=== PATIENT | female | born 1985 | race Caucasian/White ===

== ENCOUNTER 2017-12-28 21:49 | Emergency (ER) | payer OTHER ==
[~2017-12-28] VITALS: Ht 172.7 cm; Wt 86.2 kg
[~2017-12-28 21:49] MED LIST: AMOXICILLIN500 MG PO; ATARAX25 MG PO; BACTRIM DS 8001 TA1 PO; CIPROFLOXACIN500 MG PO; DOXYCYCLINE100 M3 PO; KEFLEX500 MG PO; LEVAQUIN750 M1 PO; MOTRIN800 MG PO; NEXPLANON68 M2 SQ; NKHM; OSCAL/D,OYSTER250 MG PO; PREDNICOT20 MG PO; PREDNISONE10 MG PO; TRAMADOL HCL50 MG PO; VICODIN 5/500 505 MG PO; XANAX0.5 MG PO
[2017-12-28 22:35] LABS: HEMATOCRIT 40.1 % (37.0-47.0); HEMOGLOBIN 13.6 g/dl (12.0-16.0); MEAN CELL VOLUME 86.2 fl (81.0-99.0); MEAN CORPUSCULAR HGB 29.2 pg (27.0-31.0); MEAN CORPUSCULAR HGB CONC 33.9 g/dl (33.0-37.0); MEAN PLATELET VOLUME 11.3 fl (9.6-12.3); PLATELET COUNT AUTOMATED 187 10*3/uL (130-400); RED BLOOD COUNT 4.65 10*6/uL (4.10-5.10); RED CELL DISTRI WIDTH 11.9 % (0-14.5); WHITE BLOOD COUNT 4.4 10*3/uL (4.8-10.8)
[2017-12-28 22:47] LABS: BUN 8 mg/dl (7-24); CHLORIDE 106 mmol/L (98-107); CREATININE 0.67 mg/dL (0.55-1.02); POTASSIUM 3.5 mmol/L (3.5-5.1); SODIUM 139 mmol/L (136-145)
[2017-12-28 23:02] LABS: ATYPICAL LYMPHS 2 % (0-0); BASOPHILS 1 % (0-1); TOTAL CELLS COUNTED 100 #CELLS
[2017-12-28 23:03] LABS: PLATELET SUFFICIENCY NORMAL (NORMAL)
[2017-12-28] MEDS ORDERED: PROAIR HFA8.5 GM INH (23:44)
[2017-12-28] MEDS ORDERED: ZITHROMAX250 MG PO (23:44)
== END 2017-12-28 23:51 | disposition home or self-care (01) ==
LOC: ED 21:49
PROVIDERS: Emergency Medicine Emergency Medical Services
DX: J20.9 Acute bronchitis, unspecified (principal); B34.9 Viral infection, unspecified; Z87.891 Personal history of nicotine dependence; Z87.01 Personal history of pneumonia (recurrent); Z88.5 Allergy status to narcotic agent; Z79.899 Other long term (current) drug therapy

== ENCOUNTER 2018-08-24 16:53 | Emergency (ER) | payer OTHER ==
[~2018-08-24] VITALS: Ht 172.7 cm; Wt 84.8 kg
--- NOTE | ~2018-08-24 | EKG ---
[place], [place] ELECTROCARDIOGRAM REPORT NAME: ISI HADDAD UNIT #: [id number] ROOM: DOCTOR: EPIPHANY DRAFT REPORT BIRTHDATE: [birth year] [facility] Test Date: 2018-08-24 Test Time: 17:01:30 Pat Name: ISI HADDAD Department: er Room: 19 Gender: F Customer Retention Representative: Kori Simons : 1985 Requested By: IVA GUILLEN Order Number: [id number] Reading MD: Jose Berumen MD Measurements Intervals [place]ki Rate: 81 P: 46 WA: 140 QRS: 61 QRSD: 87 T: 1 QT: 414 QTc: 481 Interpretive Statements Sinus rhythm Probable left atrial enlargement Low voltage, precordial leads Borderline T abnormalities, anterior leads Borderline prolonged QT interval Baseline wander in lead(s) V3,V4,V5 Electronically Signed On 08-27-2018 12:19:12 PDT by Jose Berumen MD CM:EKGRPT:ELECTROCARDIOGRAM REPORT [id number] IVA JOSEPH DRAFT REPORT IVA GUILLEN M.D.
[~2018-08-24 16:53] MED LIST changes: +PROAIR HFA8.5 GM INH; +ZITHROMAX250 MG PO
[2018-08-24 17:21] LABS: BASO % 0.3 % (0.0-1.0); EOS # 0.2 10*3/uL (0.0-0.4); EOS % 2.2 % (1.0-4.0); HEMOGLOBIN 13.2 g/dl (12.0-16.0); LYMPH # 2.3 10*3/uL (1.3-4.4); MEAN CELL VOLUME 87.8 fl (81.0-99.0); MEAN CORPUSCULAR HGB 29.7 pg (27.0-31.0); MEAN CORPUSCULAR HGB CONC 33.8 g/dl (33.0-37.0); MONO # 0.7 10*3/uL (0.1-1.0); MONO % 10.2 % (3.0-9.0); NEUT # 3.6 10*3/uL (2.3-7.9); NEUT % 53.2 % (47.0-73.0); PLATELET COUNT AUTOMATED 211 10*3/uL (130-400); RED BLOOD COUNT 4.44 10*6/uL (4.10-5.10); RED CELL DISTRI WIDTH 11.7 % (0-14.5); WHITE BLOOD COUNT 6.7 10*3/uL (4.8-10.8)
[2018-08-24 17:38] LABS: ALBUMIN 3.7 gm/dl (3.1-4.5); ALKALINE PHOSPHATASE 85 U/L (45-117); BUN 8 mg/dl (7-24); CHLORIDE 108 mmol/L (98-107); CREATININE 0.68 mg/dL (0.55-1.02); POTASSIUM 3.8 mmol/L (3.5-5.1); SGOT/AST 11 IU/L (3-35); SGPT/ALT 19 U/L (12-78); SODIUM 140 mmol/L (136-145); TOTAL PROTEIN 7.3 gm/dL (6.4-8.2)
[2018-08-24 17:43] LABS: TROPONIN I < 0.015 ng/ml (<0.045)
== END 2018-08-24 19:06 | disposition home or self-care (01) ==
LOC: ED 16:53
PROVIDERS: Emergency Medicine
DX: R07.9 Chest pain, unspecified (principal); R00.2 Palpitations; Z88.6 Allergy status to analgesic agent; Z87.891 Personal history of nicotine dependence

== ENCOUNTER 2018-11-14 18:43 | Emergency (ER) | payer SELFPAY ==
[~2018-11-14] VITALS: Wt 85.7 kg
[2018-11-14] MEDS ORDERED: Motrin,Rufen800 MG PO (20:10)
== END 2018-11-14 20:18 | disposition home or self-care (01) ==
LOC: ED 18:43
DX: M79.671 Pain in right foot (principal); M79.89 Other specified soft tissue disorders; R42 Dizziness and giddiness; Z87.891 Personal history of nicotine dependence; Z88.8 Allergy status to other drugs, medicaments and biological substances; Z79.2 Long term (current) use of antibiotics; Z79.899 Other long term (current) drug therapy; W22.8XXA Striking against or struck by other objects, initial encounter; Y93.89 Activity, other specified; Y92.89 Other specified places as the place of occurrence of the external cause; Y99.8 Other external cause status

== ENCOUNTER 2020-08-11 09:43 | Emergency (ER) | payer OTHER ==
[~2020-08-11 09:43] MED LIST changes: +Motrin,Rufen800 MG PO
[2020-08-11] MEDS ORDERED: PREDNISONE20 M1 PO (10:14)
== END 2020-08-11 11:47 | disposition home or self-care (01) ==
LOC: ED 09:43
DX: Z79.899 Other long term (current) drug therapy (principal); F41.9 Anxiety disorder, unspecified; L30.9 Dermatitis, unspecified

== ENCOUNTER 2020-09-30 03:11 | Emergency (ER) | payer OTHER ==
[~2020-09-30] VITALS: Ht 172.7 cm; Wt 73.0 kg
[~2020-09-30 03:11] MED LIST changes: +PREDNISONE20 M1 PO
[2020-09-30] MEDS ORDERED: CYCLOBENZAPRINE10 MG PO (04:09)
== END 2020-09-30 04:30 | disposition home or self-care (01) ==
LOC: ED 03:11
DX: S29.012A Strain of muscle and tendon of back wall of thorax, initial encounter (principal); F41.9 Anxiety disorder, unspecified; G43.909 Migraine, unspecified, not intractable, without status migrainosus; J45.909 Unspecified asthma, uncomplicated; Z88.8 Allergy status to other drugs, medicaments and biological substances; Z79.899 Other long term (current) drug therapy; Z79.2 Long term (current) use of antibiotics; Z87.891 Personal history of nicotine dependence; X50.0XXA Overexertion from strenuous movement or load, initial encounter; Y93.89 Activity, other specified; Y92.89 Other specified places as the place of occurrence of the external cause; Y99.8 Other external cause status

== ENCOUNTER 2020-10-10 19:39 | Emergency (ER) | payer OTHER ==
[~2020-10-10] VITALS: Wt 68.0 kg
[~2020-10-10 19:39] MED LIST changes: +CYCLOBENZAPRINE10 MG PO
== END 2020-10-10 22:06 | disposition home or self-care (01) ==
LOC: ED 19:39
DX: B34.9 Viral infection, unspecified (principal); Z79.899 Other long term (current) drug therapy; Z20.828 Contact with and (suspected) exposure to other viral communicable diseases

== ENCOUNTER 2021-01-28 19:02 | Emergency (ER) | payer OTHER ==
[~2021-01-28] VITALS: Ht 171.4 cm; Wt 65.8 kg
== END 2021-01-28 20:27 | disposition home or self-care (01) ==
LOC: ED 19:02
DX: R53.83 Other fatigue (principal); M79.10 Myalgia, unspecified site; F41.9 Anxiety disorder, unspecified; Z20.822 Contact with and (suspected) exposure to COVID-19; Z88.8 Allergy status to other drugs, medicaments and biological substances; Z79.899 Other long term (current) drug therapy; Z87.891 Personal history of nicotine dependence

== ENCOUNTER 2021-02-20 17:34 | Emergency (ER) | payer OTHER ==
[~2021-02-20] VITALS: Ht 172.7 cm; Wt 73.5 kg
[2021-02-20 18:20] LABS: BASO % 0.3 % (0.0-1.0); EOS # 0.1 10*3/uL (0.0-0.4); EOS % 1.4 % (1.0-4.0); HEMATOCRIT 43.4 % (37.0-47.0); LYMPH # 1.8 10*3/uL (1.3-4.4); LYMPH % 28.8 % (27.0-41.0); MEAN CELL VOLUME 90.2 fl (81.0-99.0); MEAN CORPUSCULAR HGB 29.5 pg (27.0-31.0); MEAN CORPUSCULAR HGB CONC 32.7 g/dl (33.0-37.0); MEAN PLATELET VOLUME 10.9 fl (9.6-12.3); MONO # 0.6 10*3/uL (0.1-1.0); MONO % 9.5 % (3.0-9.0); NEUT # 3.8 10*3/uL (2.3-7.9); NEUT % 59.8 % (47.0-73.0); PLATELET COUNT AUTOMATED 244 10*3/uL (130-400); RED BLOOD COUNT 4.81 10*6/uL (4.10-5.10); RED CELL DISTRI WIDTH 11.5 % (0-14.5); WHITE BLOOD COUNT 6.3 10*3/uL (4.8-10.8)
[2021-02-20 18:27] LABS: BILIRUBIN Negative (Negative); BLOOD Negative (Negative); CLARITY Turbid (Clear); COLOR Yellow (Yellow); GLUCOSE Negative (Negative); KETONE Trace (Negative); LEUKO ESTERASE 2+ (Negative); NITRITE Negative (Negative); PH 7.5 (4.5-8.0); SPECIFIC GRAVITY 1.025 (1.001-1.030)
[2021-02-20 18:34] LABS: ALKALINE PHOSPHATASE 80 U/L (45-117); BUN 9 mg/dl (7-24); CHLORIDE 106 mmol/L (98-107); CREATININE 0.76 mg/dL (0.55-1.02); LIPASE 186 U/L (73-393); POTASSIUM 3.6 mmol/L (3.5-5.1); SGOT/AST 8 IU/L (3-35); SGPT/ALT 20 U/L (12-78); SODIUM 139 mmol/L (136-145); TOTAL PROTEIN 7.9 gm/dL (6.4-8.2)
[2021-02-20 18:41] LABS: BACTERIA 1+; EPITHELIAL CELLS TNTC; MUCOUS TRACE
[2021-02-20] MEDS ORDERED: NAPROSYN500 MG PO (20:18)
[2021-02-20] MEDS ORDERED: CEFUROXIME AXE500 MG PO (20:18)
== END 2021-02-20 20:30 | disposition home or self-care (01) ==
LOC: ED 17:34
PROVIDERS: Physician Assistant
DX: N39.0 Urinary tract infection, site not specified (principal); G43.909 Migraine, unspecified, not intractable, without status migrainosus; J45.909 Unspecified asthma, uncomplicated; F17.200 Nicotine dependence, unspecified, uncomplicated; Z88.8 Allergy status to other drugs, medicaments and biological substances; Z79.899 Other long term (current) drug therapy

== ENCOUNTER → 2021-03-12 | Outpatient (CLI) | payer OTHER ==
[~2021-03-12] MED LIST changes: +CEFUROXIME AXE500 MG PO; +NAPROSYN500 MG PO
== END | disposition home or self-care (01) ==
LOC: RAD 14:04
PROVIDERS: ATTEND Nurse Practitioner Family
DX: M54.6 Pain in thoracic spine (principal); M54.5 Low back pain

== ENCOUNTER 2022-04-26 12:51 | Emergency (ER) | payer OTHER ==
[~2022-04-26] VITALS: Wt 80.7 kg
[2022-04-26] MEDS ORDERED: AUGMENTIN 875-875 MG PO (15:06)
== END 2022-04-26 15:13 | disposition home or self-care (01) ==
LOC: ED 12:51
DX: J02.9 Acute pharyngitis, unspecified (principal); Z88.8 Allergy status to other drugs, medicaments and biological substances; Z87.891 Personal history of nicotine dependence

== ENCOUNTER 2023-06-12 11:57 | Emergency (ER) | payer OTHER ==
[~2023-06-12] VITALS: Ht 167.6 cm; Wt 84.8 kg
[~2023-06-12 11:57] MED LIST changes: +AUGMENTIN 875-875 MG PO
== END 2023-06-12 14:51 | disposition home or self-care (01) ==
LOC: ED 11:57
DX: S90.111A Contusion of right great toe without damage to nail, initial encounter (principal); G43.909 Migraine, unspecified, not intractable, without status migrainosus; Z88.8 Allergy status to other drugs, medicaments and biological substances; Z98.890 Other specified postprocedural states; Z87.891 Personal history of nicotine dependence; W22.8XXA Striking against or struck by other objects, initial encounter; Y93.01 Activity, walking, marching and hiking; Y92.89 Other specified places as the place of occurrence of the external cause; Y99.8 Other external cause status

== ENCOUNTER 2023-10-22 16:51 | Emergency (ER) | payer OTHER ==
[~2023-10-22] VITALS: Ht 167.6 cm; Wt 84.8 kg
[2023-10-22 18:57] LABS: BASO % 0.4 % (0.0-1.0); EOS # 0.2 10*3/uL (0.0-0.4); EOS % 2.6 % (1.0-4.0); HEMATOCRIT 38.7 % (37.0-47.0); LYMPH # 1.4 10*3/uL (1.3-4.4); LYMPH % 24.7 % (27.0-41.0); MEAN CORPUSCULAR HGB 29.5 pg (27.0-31.0); MEAN CORPUSCULAR HGB CONC 33.6 g/dl (33.0-37.0); MEAN PLATELET VOLUME 10.5 fl (9.6-12.3); MONO # 0.9 10*3/uL (0.1-1.0); NEUT # 3.2 10*3/uL (2.3-7.9); NEUT % 56.1 % (47.0-73.0); PLATELET COUNT AUTOMATED 203 10*3/uL (130-400); RED CELL DISTRI WIDTH 12.2 % (0-14.5); WHITE BLOOD COUNT 5.7 10*3/uL (4.8-10.8)
[2023-10-22 19:13] LABS: ALKALINE PHOSPHATASE 83 U/L (46-116); BUN 10 mg/dl (9-23); CHLORIDE 107 mmol/L (98-107); POTASSIUM 3.6 mmol/L (3.4-5.1); SGPT/ALT 13 U/L (5-49); TOTAL PROTEIN 6.7 gm/dL (6.0-8.0)
[2023-10-22] MEDS ORDERED: AVPAK AZITHROM250 M1 PO (20:17)
[2023-10-22] MEDS ORDERED: PREDNISONE20 M1 PO (20:17)
== END 2023-10-22 20:46 | disposition home or self-care (01) ==
LOC: ED 16:51
PROVIDERS: Nurse Practitioner Family
DX: J40 Bronchitis, not specified as acute or chronic (principal); F41.9 Anxiety disorder, unspecified; E83.51 Hypocalcemia; E87.6 Hypokalemia; G43.909 Migraine, unspecified, not intractable, without status migrainosus; Z88.8 Allergy status to other drugs, medicaments and biological substances; Z87.891 Personal history of nicotine dependence; Z98.890 Other specified postprocedural states; Z20.822 Contact with and (suspected) exposure to COVID-19

== ENCOUNTER 2023-10-31 08:20 | Emergency (ER) | payer OTHER ==
[~2023-10-31] VITALS: Ht 167.6 cm; Wt 84.8 kg
[~2023-10-31 08:20] MED LIST changes: +AVPAK AZITHROM250 M1 PO
[2023-10-31 08:53] LABS: BASO % 0.2 % (0.0-1.0); EOS # 0.1 10*3/uL (0.0-0.4); EOS % 1.5 % (1.0-4.0); HEMATOCRIT 40.2 % (37.0-47.0); LYMPH # 2.3 10*3/uL (1.3-4.4); LYMPH % 28.2 % (27.0-41.0); MEAN CELL VOLUME 87.4 fl (81.0-99.0); MEAN CORPUSCULAR HGB 29.8 pg (27.0-31.0); MEAN CORPUSCULAR HGB CONC 34.1 g/dl (33.0-37.0); MEAN PLATELET VOLUME 9.8 fl (9.6-12.3); MONO # 0.8 10*3/uL (0.1-1.0); MONO % 10.2 % (3.0-9.0); NEUT # 4.8 10*3/uL (2.3-7.9); NEUT % 59.7 % (47.0-73.0); PLATELET COUNT AUTOMATED 283 10*3/uL (130-400); RED CELL DISTRI WIDTH 12.1 % (0-14.5)
[2023-10-31 09:16] LABS: ALKALINE PHOSPHATASE 87 U/L (46-116); CHLORIDE 106 mmol/L (98-107); SGPT/ALT 22 U/L (5-49); TOTAL PROTEIN 7.1 gm/dL (6.0-8.0)
[2023-10-31 09:17] LABS: BUN < 5 mg/dl (9-23)
[2023-10-31] MEDS ORDERED: VIBRAMYCIN100 MG PO (09:33)
[2023-10-31] MEDS ORDERED: PREDNISONE20 M1 PO (09:33)
[2023-10-31] MEDS ORDERED: PROVENTIL HFA6.7 GM INH (09:33)
== END 2023-10-31 10:17 | disposition home or self-care (01) ==
LOC: ED 08:20
PROVIDERS: Emergency Medicine
DX: J45.901 Unspecified asthma with (acute) exacerbation (principal); G43.909 Migraine, unspecified, not intractable, without status migrainosus; Z88.8 Allergy status to other drugs, medicaments and biological substances; Z98.890 Other specified postprocedural states; Z87.891 Personal history of nicotine dependence; Z20.822 Contact with and (suspected) exposure to COVID-19

== ENCOUNTER 2024-09-17 10:56 | Emergency (ER) | payer OTHER ==
[~2024-09-17] VITALS: Ht 167.6 cm; Wt 78.9 kg
[~2024-09-17 10:56] MED LIST changes: +PROVENTIL HFA6.7 GM INH; +VIBRAMYCIN100 MG PO
[2024-09-17] MEDS ORDERED: Ketorolac Tromethamine 30 MG/ML VIAL IM ONE (11:15)
[2024-09-17] MEDS ORDERED: Dexamethasone Sodium Phospha 20 MG/5 ML VIAL IM ONE (11:15)
[2024-09-17] MEDS ORDERED: CYCLOBENZAPRINE5 M3 PO (13:48)
[2024-09-17] MEDS ORDERED: MELOXICAM15 MG PO (13:48)
[2024-09-17] MEDS ORDERED: MEDROL DOSEPAK4 MG PO (13:48)
[2024-09-17] MEDS ORDERED: LIDOCAINE PAIN1 EACH T (13:48)
== END 2024-09-17 13:51 | disposition home or self-care (01) ==
LOC: ED 10:56
DX: M62.830 Muscle spasm of back (principal); G43.909 Migraine, unspecified, not intractable, without status migrainosus; Z88.8 Allergy status to other drugs, medicaments and biological substances; Z87.891 Personal history of nicotine dependence

== ENCOUNTER 2024-11-29 22:12 | Emergency (ER) | payer OTHER ==
[~2024-11-29] VITALS: Ht 167.6 cm; Wt 81.6 kg
[~2024-11-29 22:12] MED LIST changes: +CYCLOBENZAPRINE5 M3 PO; +LIDOCAINE PAIN1 EACH T; +MEDROL DOSEPAK4 MG PO; +MELOXICAM15 MG PO
[2024-11-29] MEDS ORDERED: LORazepam 0.5 MG TAB PO ONE (22:35)
[2024-11-29 23:09] LABS: BASO % 0.4 % (0.0-1.0); EOS # 0.1 10*3/uL (0.0-0.4); EOS % 0.9 % (1.0-4.0); HEMATOCRIT 38.7 % (37.0-47.0); MEAN CELL VOLUME 88.6 fl (81.0-99.0); MEAN CORPUSCULAR HGB 29.7 pg (27.0-31.0); MEAN CORPUSCULAR HGB CONC 33.6 g/dl (33.0-37.0); MEAN PLATELET VOLUME 10.5 fl (9.6-12.3); MONO # 0.7 10*3/uL (0.1-1.0); MONO % 11.5 % (3.0-9.0); NEUT # 4.1 10*3/uL (2.3-7.9); NEUT % 72.2 % (47.0-73.0); PLATELET COUNT AUTOMATED 177 10*3/uL (130-400); RED BLOOD COUNT 4.37 10*6/uL (4.10-5.10); RED CELL DISTRI WIDTH 11.6 % (0-14.5); WHITE BLOOD COUNT 5.7 10*3/uL (4.8-10.8)
[2024-11-29 23:27] LABS: BUN 9 mg/dl (9-23); CHLORIDE 105 mmol/L (98-107); POTASSIUM 3.6 mmol/L (3.4-5.1)
[2024-11-29] MEDS ORDERED: AZITHROMYCIN 250 MG TAB PO ONE (23:45)
[2024-11-29] MEDS ORDERED: Albuterol Sulf/Ipratropium 3 ML VIAL NEB ONE (23:45)
[2024-11-29] MEDS ORDERED: AVPAK AZITHROM250 MG PO (23:55)
== END 2024-11-30 00:33 | disposition home or self-care (01) ==
LOC: ED 22:12
PROVIDERS: Internal Medicine
DX: J18.9 Pneumonia, unspecified organism (principal); Z20.822 Contact with and (suspected) exposure to COVID-19; R06.02 Shortness of breath; G43.909 Migraine, unspecified, not intractable, without status migrainosus; Z88.8 Allergy status to other drugs, medicaments and biological substances; Z98.890 Other specified postprocedural states; Z87.891 Personal history of nicotine dependence

== ENCOUNTER 2025-04-02 11:14 | Emergency (ER) | payer OTHER ==
[~2025-04-02] VITALS: Ht 167.6 cm; Wt 78.5 kg
[~2025-04-02 11:14] MED LIST changes: +AVPAK AZITHROM250 MG PO
== END 2025-04-02 12:45 | disposition home or self-care (01) ==
LOC: ED 11:14
DX: H11.31 Conjunctival hemorrhage, right eye (principal); J45.909 Unspecified asthma, uncomplicated; G43.909 Migraine, unspecified, not intractable, without status migrainosus; H57.89 Other specified disorders of eye and adnexa

== ENCOUNTER → 2025-09-18 | Outpatient (CLI) | payer OTHER ==
[2025-09-18 10:17] LABS: BASO # 0.0 10*3/uL (0.0-0.1); BASO % 0.4 % (0.0-1.0); EOS # 0.1 10*3/uL (0.0-0.4); EOS % 2.2 % (1.0-4.0); MEAN CELL VOLUME 89.4 fl (81.0-99.0); MEAN CORPUSCULAR HGB 29.9 pg (27.0-31.0); MEAN PLATELET VOLUME 10.4 fl (9.6-12.3); MONO # 0.4 10*3/uL (0.1-1.0); MONO % 9.4 % (3.0-9.0); NEUT # 2.5 10*3/uL (2.3-7.9); NEUT % 55.3 % (47.0-73.0); NUCLEATED RED BLOOD CELL 0.0 % (0.0-0.0); NUCLEATED RED BLOOD CELL 0.0 10*3/uL (0.0-0.0); PLATELET COUNT AUTOMATED 219 10*3/uL (130-400); RED CELL DISTRI WIDTH 11.6 % (0-14.5)
[2025-09-18 10:41] LABS: BUN 9 mg/dl (9-23); FREE T4 1.32 ng/dl (0.89-1.76); SGPT/ALT 7 U/L (5-49)
[2025-09-18 10:50] LABS: VITAMIN D, 25-HYDROXY 48.8 ng/mL (30-100)
[2025-09-20 11:07] LABS: TESTOS, FREE 1.4 pg/mL (0.0-4.2)
== END | disposition home or self-care (01) ==
LOC: LAB 09:32
PROVIDERS: ATTEND Podiatrist Foot & Ankle Surgery
DX: M85.89 Other specified disorders of bone density and structure, multiple sites (principal)

== ENCOUNTER → 2025-09-20 | Outpatient (CLI) | payer OTHER | END | disposition home or self-care (01) | LOC: LAB 16:11 | PROVIDERS: ATTEND Internal Medicine | DX: M85.89 Other specified disorders of bone density and structure, multiple sites (principal) ==